=== PATIENT | female | born 1955 | race Caucasian/White ===

== ENCOUNTER 2016-11-09 09:01 | Emergency (ER) | payer OTHER ==
--- NOTE | 2016-11-09 09:13 | CPEKG ---
Heart Rate: 50 RR Interval: 1200 P-R Interval: 180 QRSD Interval: 84 QT Interval: 408 QTC Interval: 372 P [place]: 70 QRS [place]: -20 T Wave [place]: 41 EKG Severity - OTHERWISE NORMAL ECG - EKG Impression: SINUS RHYTHM EKG Impression: ATRIAL PREMATURE COMPLEX EKG Impression: BORDERLINE LEFT AXIS DEVIATION Electronically Signed By: Chidi Beebe 09-Nov-2016 13:55:08
--- NOTE | 2016-11-09 09:20 | EDPHY ---
H & P Stated Complaint: Chest pain, central, since 0700-sees Rishi Ritter. Source: Patient, Old records Exam Limitations: No limitations - Personal History Current Tetanus/Diphtheria Vaccine: No Current Tetanus Diphtheria and Acellular Pertussis (TDAP): No Tetanus Vaccine Date: pt allergic - Medical/Surgical History Hx Asthma: No Hx Chronic Respiratory Disease: No Hx Diabetes: No Hx Cardiac Disease: Yes Hx Renal Disease: No Hx Cirrhosis: No Hx Alcoholism: Yes Hx HIV/AIDS: No Hx Splenectomy or Spleen Trauma: No Other PMH: PMH: MIGRAINES, "Broken Heart Syndrome", cardiomyopathy, HTN. PSH: ORTHO,SKIN CA,THYROIDECTOMY,APPY - Social History Smoking Status: Former smoker Time Seen by Provider: 11/09/16 09:07 HPI/ROS: CHIEF COMPLAINT: Chest Pain HISTORY OF PRESENT ILLNESS: Patient complaints of chest pain that started at 6: 30 a.m. this morning. It started abruptly while going up a set of stairs. This is retrosternal. Constant duration. Currently 5/10 pain. Does not radiate. It is described as a burning sensation. Some shortness of breath with this. She also felt her heart racing this morning. She has no abdominal epigastric pain. She has no nausea, vomiting or diaphoresis. No recent trauma or surgery. She did recently travel back from [place]. She also has multiple stressors in her life right now. The symptoms are different than last year when she had chest pain that was diagnosis takotsubo syndrome. She has no other associated complaints or modifying factors. She did take her aspirin 325 mg this morning. She was recently scheduled to have a stress test and loop study, but these were canceled due to family emergencies. PRIOR CARDIAC WORKUP: Heart catheterization 2016. Pending stress test REVIEW OF SYSTEMS: Ten systems reviewed and are negative unless otherwise noted in the HPI EXAMINATION: General Appearance: Alert, no distress Head: normocephalic, atraumatic Eyes: Pupils equal and round, no conjunctival pallor or injection ENT, Mouth: Mucous membranes moist. Uvula midline. No erythema or edema. Neck: Normal inspection, supple, non-tender. Trachea midline. Respiratory: Lungs are clear to auscultation. No wheezing, rhonchi or crackles. Cardiovascular: Regular rate and rhythm. No murmur. Pulses intact distally. Gastrointestinal: Abdomen is soft and nontender Neurological: GCS 15. A&O, nonfocal, normal gait Skin: Warm and dry, no rash Extremities: Nontender, no pedal edema. No palpable cords. No pain with passive range of motion. No evidence of DVT. Psychiatric: Mood and affect normal DIFFERENTIAL DIAGNOSES: Including but not limited to in no particular order: Acute Chest Pain, ACS, Stable Angina, Pneumonia, PE, duodenitis, gastritis, esophagitis, GERD MDM: 9:20 a.m. Chest pain this started at 6:30 a.m. this morning. It is a retrosternal burning sensation. Vital signs stable and she is in no acute distress. Laboratory studies and chest x-ray are pending 10:[address] Gerardo has presented to the emergency department to evaluate the patient. He is aware of her presence that she contacted him this morning. He has evaluated the patient has requested an echocardiogram here in the emergency department. This has been ordered. Laboratory studies are negative thus far including a negative D-dimer. However, we are having difficulty obtaining a troponin. This is not yet been resulted. 10:40 a.m. Troponin is negative. Vital signs remained stable. She is obtaining her echocardiogram at bedside in ED at this time. 11:[address] Gerardo that the ejection fraction on the echocardiogram is normal. I discussed the findings with the patient. She informs that she is more comfortable with being observed today as she has continued to have pain and would like to know source of the pain. I informed her that she may not have answers to this, we will admit her to Dr. Gerardo for observation. Dr. Gerardo voiced that he is happy to do so. Plan for observation with repeat troponin and further studies per Dr. Gerardo. She is admitted in stable condition. EKG: Interpreted by Dr. Beebe SUPERVISION: Patient was evaluated in conjunction with the supervising physician. Please see their note for details. (Etienne Ramirez) Constitutional: Initial Vital Signs Temperature (C) 36.4 C 11/09/16 09:05 Heart Rate 62 11/09/16 09:05 Respiratory Rate 18 11/09/16 09:05 Blood Pressure 168/96 H 11/09/16 09:05 O2 Sat (%) 95 11/09/16 09:05 O2 Delivery Mode Room Air Allergies/Adverse Reactions: acyclovir [Acyclovir] Allergy (Verified 11/09/16 09:03) MIGRAINE latex [Latex] Allergy (Verified 11/09/16 09:03) ITCHING/MIGRAINE morphine Allergy (Verified 11/09/16 09:03) oxycodone [Oxycodone] Allergy (Verified 11/09/16 09:03) H.A./NAUSEA/ITCHING Sulfa (Sulfonamide Antibiotics) Allergy (Verified 11/09/16 09:03) ENVIRONMENTAL/SEASONAL Allergy (Uncoded 04/06/12 11:22) FRAGRANCES Allergy (Uncoded 04/06/12 11:22) MIGRAINES PHENOLOMINE Allergy (Uncoded 04/06/12 11:22) MIGRAINES SULFITES Allergy (Uncoded 04/06/12 11:22) MIGRAINE/VOMITING Home Medications: Medication Instructions Recorded Acetaminophen [Tylenol ES 500 mg 1,000 mg PO Q6 PRN 12/19/15 (*)] Cyclobenzaprine [Cyclobenzaprine 5 mg PO HS PRN 12/19/15 HCl] Eletriptan HBr [Relpax] 40 mg PO DAILY PRN 12/19/15 Estradiol [Estradiol 1 MG (*)] 1.5 mg PO HS 12/19/15 Levothyroxine [Synthroid 112 mcg 112 mcg PO Q2D@12/19/15 (*)] Loratadine [Claritin 10 mg] 10 mg PO DAILY PRN 12/19/15 Progesterone, Micronized 100 mg PO HS 12/19/15 [Progesterone] Aspirin [Aspirin 325 mg (*)] 325 mg PO DAILY #0 tab 12/21/15 Enalapril Maleate [Vasotec 5 MG 2.5 mg PO DAILY #30 tab 12/21/15 (*)] Carvedilol [Coreg (*)] 3.125 mg PO DAILY18 11/09/16 Herbals/Supplements -Info Only 1 ea PO DAILY 11/09/16 Ibuprofen [Motrin (*)] 600 mg PO DAILY PRN 11/09/16 LORazepam [Ativan (*)] 1 mg PO HS PRN 11/09/16 Levothyroxine [Synthroid 125 mcg 125 mcg PO Q2D@06 11/09/16 (*)] Ondansetron Odt [Zofran Odt 4 mg 4 mg PO DAILY PRN 11/09/16 (*)] Medical Decision Making - Diagnostics Imaging Results: Imaging Impressions Chest X-Ray 11/09/16 09:24 Impression: Clear lungs. Negative portable chest. ED Course/Re-evaluation: I discussed this case with Mar the physician assistant teaching professor and evaluated the patient reviewed the labs and EKG. Dr. Gerardo and Dr. Abdul from [facility] have both met with the patient and they feel it is safe for the patient to be discharged. She has no evidence of Takasubo's cardiomyopathy today. Patient would like to go home now. (Chidi Beebe) - Data Points Laboratory Results: Laboratory Results 11/09/16 09:17 11/09/16 09:17 11/09/16 11/09/16 11/09/16 09:17 09:17 09:17 WBC 4.04 10^3/uL 10^3/uL (3.80-9.50) RBC 4.85 10^6/uL 10^6/uL (4.18-5.33) Hgb 15.7 g/dL g/dL (12.6-16.3) Hct 46.3 % % (38.0-47.0) MCV 95.5 fL fL (81.5-99.8) MCH 32.4 pg pg (27.9-34.1) MCHC 33.9 g/dL g/dL (32.4-36.7) RDW 12.1 % % (11.5-15.2) Plt Count 216 10^3/uL 10^3/uL (150-400) MPV 10.9 fL fL (8.7-11.7) Neut % (Auto) 53.3 % % (39.3-74.2) Lymph % (Auto) 32.2 % % (15.0-45.0) [place] % (Auto) 9.9 % % (4.5-13.0) Eos % (Auto) 3.2 % % (0.6-7.6) Baso % (Auto) 1.2 % % (0.3-1.7) Nucleat RBC Rel Count 0.0 % % (0.0-0.2) Absolute Neuts (auto) 2.15 10^3/uL 10^3/uL (1.70-6.50) Absolute Lymphs (auto) 1.30 10^3/uL 10^3/uL (1.00-3.00) Absolute Monos (auto) 0.40 10^3/uL 10^3/uL (0.30-0.80) Absolute Eos (auto) 0.13 10^3/uL 10^3/uL (0.03-0.40) Absolute Basos (auto) 0.05 10^3/uL 10^3/uL (0.02-0.10) Absolute Nucleated RBC 0.00 10^3/uL 10^3/uL (0-0.01) Immature Gran % 0.2 % % (0.0-1.1) Immature Gran # 0.01 10^3/uL 10^3/uL (0.00-0.10) PT 13.3 SEC SEC (12.0-15.0) INR 1.02 (0.83-1.16) APTT 24.1 SEC SEC (23.0-38.0) D-Dimer < 0.27 ug/mLFEU ug/mLFEU (0.00-0.50) Sodium 143 mEq/L mEq/L (134-144) Potassium 4.2 mEq/L mEq/L (3.5-5.2) Chloride 105 mEq/L mEq/L (97-110) Carbon Dioxide 29 mEq/l mEq/l (22-31) Anion Gap 9 mEq/L mEq/L (8-16) BUN 17 mg/dL mg/dL (7-23) Creatinine 0.9 mg/dL mg/dL (0.6-1.0) Estimated GFR > 60 Glucose 79 mg/dL mg/dL (70-100) Calcium 9.8 mg/dL mg/dL (8.5-10.4) Troponin I < 0.012 ng/mL ng/mL (0-0.034) NT-Pro-B Natriuret Pep 205 pg/mL H pg/mL (0-125) Lipase 105.0 IU/L IU/L (23-300) Medications Given: Discontinued Medications Lorazepam (Ativan Injection) 1 mg IVP EDNOW ONE Stop: 11/09/16 09:36 Last Admin: 11/09/16 09:35 Dose: 1 mg Departure - Departure Disposition: [facility] Acute Clinical Impression: Acute chest pain Condition: Good
[2016-11-09] MEDS ORDERED: LORazepam 2 MG/ML INJ ONE (09:25)
[2016-11-09 09:27] LABS: % IMMATURE GRANULYOCYTES 0.2 % (0.0-1.1); ABSOLUTE IMMATURE GRANULOCYTES 0.01 10^3/uL (0.00-0.10); ADD DIFF? NO; ADD MORPH? NO; ADD SCAN? NO; ATYPICAL LYMPHOCYTE FLAG 10 (0-99); FRAGMENT RBC FLAG 0 (0-99); HEMATOCRIT 46.3 % (38.0-47.0); HEMOGLOBIN 15.7 g/dL (12.6-16.3); LEFT SHIFT FLG 0 (0-99); LIPEMIA HEMOLYSIS FLAG 90 (0-99); MEAN CELL HEMOGLOBIN 32.4 pg (27.9-34.1); MEAN CELL HEMOGLOBIN CONCENTR. 33.9 g/dL (32.4-36.7); MEAN CELL VOLUME 95.5 fL (81.5-99.8); MEAN PLATELET VOLUME 10.9 fL (8.7-11.7); PLATELET CLUMPS FLAG 0 (0-99); PLATELET COUNT 216 10^3/uL (150-400); RED BLOOD CELL COUNT 4.85 10^6/uL (4.18-5.33); RED CELL DISTRIBUTION WIDTH 12.1 % (11.5-15.2)
[2016-11-09] MEDS ORDERED: LORazepam 2 MG/ML INJ IVP ONE (09:35)
[2016-11-09 09:41] LABS: INR 1.02 (0.83-1.16); PROTIME(PATIENT) 13.3 SEC (12.0-15.0)
[2016-11-09 09:42] LABS: APTT 24.1 SEC (23.0-38.0)
[2016-11-09 09:47] LABS: ANION GAP 9 mEq/L (8-16); CALCIUM 9.8 mg/dL (8.5-10.4); CARBON DIOXIDE 29 mEq/l (22-31); CHLORIDE 105 mEq/L (97-110); CREATININE 0.9 mg/dL (0.6-1.0); GLOMERULAR FILTRATION RATE > 60; GLUCOSE 79 mg/dL (70-100); POTASSIUM 4.2 mEq/L (3.5-5.2); SODIUM 143 mEq/L (134-144)
[2016-11-09 10:27] LABS: TROPONIN I < 0.012 ng/mL (0-0.034)
--- NOTE | 2016-11-09 11:38 | ECHO ---
[id number] + + [address] : : [place] [address] : : [phone] + + Adult Echocardiographic Report + -----+ :Name: CISCO ALVAREZ MStudy Date: 11/09/2016 11:03 AM BP: 125/74 mmHg : : Hospital Admission Number: [id number] [facility] n: ER: :: 1955 Gender: Female : :Age: 61 yrs Race: WH,White : :Reason For Study: chest pain : :History: chest pain, h/o takotsubo : + -----+ MMode/2D Measurements \T\ Calculations IVSd: 0.81 cm LVIDd: 4.5 cm FS: 26.1 % Ao root diam: LVPWd: 0.81 cm LVIDs: 3.3 cm EDV(Teich): 2.9 cm 91.5 ml ESV(Teich): 44.5 ml EF(Teich): 51.4 % LVLd ap4: 7.9 cm SV(MOD-sp4): EDV(MOD-sp4): 47.0 ml 81.0 ml LVLs ap4: 6.2 cm ESV(MOD-sp4): 34.0 ml EF(MOD-sp4): 58.0 % Normal Measurement Values: + + :LVIDd (3.5-5.7cm) IVSd (0.6-1.1cm) LVPWd (0.6-1.1cm) Aortic Root (2.0-3.7cm)Left Atrium (1.5-4.0cm): :LV Vol(d) (76-115ml) LV Vol(s) (29-48ml) Ejec Fraction (50-65%)PV Umesh (0.6- 1.2m/s) TV Umesh (0.4-1.0m/s) : :MV E Umesh (0.8-1.0m/s)MV A Umesh (0.3-1.0m/s)LVOT Umesh (0.7-1.2m/s) Asc Ao Umesh ( 0.9-1.8m/s) : + + Doppler Measurements \T\ Calculations MV E max umesh: Ao V2 max: LV V1 max: PA V2 max: 47.9 cm/sec 91.7 cm/sec 69.1 cm/sec 66.9 cm/sec MV A max umesh: Ao max PG: LV V1 max PG: PA max P.3 cm/sec 3.4 mmHg 1.9 mmHg 1.8 mmHg MV E/A: 0.92 MV dec time: 0.30 sec TR max umesh: 201.0 cm/sec TR max P.2 mmHg RAP systole: 5.0 mmHg RVSP(TR): 21.2 mmHg Left Ventricle The left ventricle is normal in size and function. There is normal left ventricular wall thickness. Ejection Fraction = 55%. No regional wall motion abnormalities noted. Right Ventricle The right ventricle is normal in size and function. Atria The left atrial size is normal. Right atrial size is normal. Mitral Valve There is mild mitral valve prolapse. There is no mitral valve stenosis. There is trace mitral regurgitation. Tricuspid Valve The tricuspid valve is normal in structure and function. There is no tricuspid stenosis. There is trace to mild tricuspid regurgitation. Right ventricular systolic pressure is 21mmHg. Aortic Valve The aortic valve is trileaflet. There is no aortic stenosis. There is no aortic insufficiency. Pulmonic Valve The pulmonic valve is not well visualized. Great Vessels The aortic root is normal size. Pericardium/Pleural Small to moderate size pericardial effusion noted around the RV free wall and RA. No evidence of tamponade. Conclusion A two-dimensional transthoracic echocardiogram with M-mode and Doppler was performed. The left ventricle is normal in size and function. Ejection Fraction = 55%. There is mild mitral valve prolapse. There is trace mitral regurgitation. There is trace to mild tricuspid regurgitation. Right ventricular systolic pressure is 21mmHg. Small to moderate size pericardial effusion noted around the RV free wall and RA. No evidence of tamponade. Final Reading Physician: Ally Yi signed on 11/09/2016 11:36 AM Ordering Physician: Etienne Ramirez Performed By: Bre Youngblood
[2016-11-09 12:38] VITALS: TEMP 98.4
--- NOTE | 2016-11-09 13:10 | CPEKG ---
Heart Rate: 64 RR Interval: 938 P-R Interval: 172 QRSD Interval: 82 QT Interval: 400 QTC Interval: 413 P [place]: 63 QRS [place]: -17 T Wave [place]: 42 EKG Severity - BORDERLINE ECG - EKG Impression: SINUS RHYTHM EKG Impression: BORDERLINE LEFT AXIS DEVIATION EKG Impression: BORDERLINE T ABNORMALITIES, ANT-LAT LEADS Electronically Signed By: Chidi Beebe 09-Nov-2016 13:55:08
[2016-11-09 13:48] VITALS: BP 105/61; PULSE 68; RESP 16; O2SAT 93
== END 2016-11-09 13:47 | disposition home or self-care (01) ==
LOC: UNDOADMOB 11:42
DX: R07.9 Chest pain, unspecified (principal); I10 Essential (primary) hypertension; Z79.82 Long term (current) use of aspirin; Z85.828 Personal history of other malignant neoplasm of skin; Z87.891 Personal history of nicotine dependence; Z91.040 Latex allergy status
CPT/HCPCS: 96374; J2060

== ENCOUNTER 2017-02-23 11:48 | Emergency (ER) | payer OTHER ==
--- NOTE | 2017-02-23 12:03 | CPEKG ---
Heart Rate: 68 RR Interval: 882 P-R Interval: 172 QRSD Interval: 82 QT Interval: 408 QTC Interval: 434 P [place]: 74 QRS [place]: -10 T Wave [place]: 56 EKG Severity - BORDERLINE ECG - EKG Impression: SINUS RHYTHM EKG Impression: BORDERLINE T WAVE ABNORMALITIES Electronically Signed By: Juan Gomez 23-Feb-2017 12:34:56
[2017-02-23] MEDS ORDERED: ASPIRIN 81 MG CHEWABLE TAB PO ONE (12:05)
[2017-02-23] MEDS ORDERED: LORazepam 2 MG/ML INJ IVP ONE (12:13)
[2017-02-23 12:19] LABS: % IMMATURE GRANULYOCYTES 0.3 % (0.0-1.1); ABSOLUTE IMMATURE GRANULOCYTES 0.02 10^3/uL (0.00-0.10); ADD DIFF? NO; ADD MORPH? NO; ADD SCAN? NO; ATYPICAL LYMPHOCYTE FLAG 0 (0-99); FRAGMENT RBC FLAG 0 (0-99); HEMATOCRIT 45.3 % (38.0-47.0); HEMOGLOBIN 15.4 g/dL (12.6-16.3); LEFT SHIFT FLG 0 (0-99); LIPEMIA HEMOLYSIS FLAG 90 (0-99); MEAN CELL HEMOGLOBIN 32.4 pg (27.9-34.1); MEAN CELL VOLUME 95.2 fL (81.5-99.8); PLATELET CLUMPS FLAG 30 (0-99); PLATELET COUNT 237 10^3/uL (150-400); RED BLOOD CELL COUNT 4.76 10^6/uL (4.18-5.33); RED CELL DISTRIBUTION WIDTH 11.8 % (11.5-15.2)
--- NOTE | 2017-02-23 12:29 | EDPHY ---
H & P Smoking Status: Former smoker Time Seen by Provider: 02/23/17 12:24 HPI/ROS: HPI: Ms Blanton is a 61 yrs, female who presents with Chief Complaint: Chest pain Location: Mid sternal chest pain radiating to the back and both arms Quality: sharp, pressure Duration: started this morning while putting her makeup on. Signs and Symptoms: Positive shortness of breath, positive cardiac awareness, positive anxiety, negative lower leg swelling, negative nausea or vomiting, positive palpitations Timing: acute on chronic, sudden and constant Severity: Moderate Context: Patient history of takotsubo syndrome diagnosed via left heart catheterization in December 2015 with EF 15% and normal coronary arteries at that time which was managed medically. seen again in this ER 10/2016 with chest pain and negative cardiac enzymes and echocardiogram showing normal EF. palpitations have continued and patient recently had a Holter monitor day 04/[address] Vik Brock. PLan was to have a cardiac MRI but unable to complete outpatient due to claustrophobia and was scheduled for near future with anesthesia. Patient admits to some anxiety and took an Ativan 1 mg tablet this morning without relief. Modifying Factors: Ativan Comment: ROS: Eyes: No blurred vision Respiratory: + shortness of breath, no cough Cardiovascular: + chest pain Gastrointestinal: No nausea, no vomiting no diarrhea Genitourinary: No dysuria Extremities: No myalgias Neurologic: No weakness, no numbness Skin: No rashes Hematologic: No bruising, no bleeding MEDICAL/SURGICAL HISTORY: (Sarahi Pedraza) Physical Exam: CONSTITUTIONAL: Pleasant adult white female who appears younger than stated age accompanied by her awake and alert, moderate anxiety HEENT: Atraumatic and normocephalic, PERRL, EOMI. Tympanic membranes clear. . Oropharynx clear, no exudate and moist pink mucosa. Airway patent. No lymphadenopathy. No meningismus. Cardiovascular: Normal S1/S2, regular rate, regular rhythm, without murmur rub or gallop. PULMONARY/CHEST: Symmetrical and nontender. Clear to auscultation bilaterally Good air movement. No accessory muscle usage. ABDOMEN: Soft, nondistended, nontender, no rebound, no guarding, no peritoneal signs, no masses or organomegaly. No CVAT. EXTREMITIES: 2/2 pulses, no deformities, no clubbing, no cyanosis or edema. NEUROLOGICAL: no focal neuro deficits. GCS 15. SKIN: Warm and dry, no erythema. no rash. Good capillary refill. (Sarahi Pedraza) Constitutional: Initial Vital Signs Temperature (C) 36.3 C 02/23/17 11:49 Heart Rate 73 02/23/17 11:49 Respiratory Rate 18 02/23/17 11:49 Blood Pressure 161/94 H 02/23/17 11:49 O2 Sat (%) 98 02/23/17 11:49 O2 Delivery Mode Room Air Allergies/Adverse Reactions: acyclovir [Acyclovir] Allergy (Verified 02/23/17 11:53) MIGRAINE latex [Latex] Allergy (Verified 02/23/17 11:53) ITCHING/MIGRAINE morphine Allergy (Verified 02/23/17 11:53) oxycodone [Oxycodone] Allergy (Verified 02/23/17 11:53) H.A./NAUSEA/ITCHING Sulfa (Sulfonamide Antibiotics) Allergy (Verified 02/23/17 11:53) ENVIRONMENTAL/SEASONAL Allergy (Uncoded 04/06/12 11:22) FRAGRANCES Allergy (Uncoded 04/06/12 11:22) MIGRAINES PHENOLOMINE Allergy (Uncoded 04/06/12 11:22) MIGRAINES SULFITES Allergy (Uncoded 04/06/12 11:22) MIGRAINE/VOMITING Home Medications: Medication Instructions Recorded Acetaminophen [Tylenol ES 500 mg 1,000 mg PO Q6 PRN 12/19/15 (*)] Cyclobenzaprine [Cyclobenzaprine 5 mg PO HS PRN 12/19/15 HCl] Eletriptan HBr [Relpax] 40 mg PO DAILY PRN 12/19/15 Estradiol [Estradiol 1 MG (*)] 1.5 mg PO HS 12/19/15 Levothyroxine [Synthroid 112 mcg 112 mcg PO Q2D@12/19/15 (*)] Loratadine [Claritin 10 mg] 10 mg PO DAILY PRN 12/19/15 Progesterone, Micronized 100 mg PO HS 12/19/15 [Progesterone] Aspirin [Aspirin 325 mg (*)] 325 mg PO DAILY #0 tab 12/21/15 Enalapril Maleate [Vasotec 5 MG 2.5 mg PO DAILY #30 tab 12/21/15 (*)] Carvedilol [Coreg (*)] 3.125 mg PO DAILY18 11/09/16 Herbals/Supplements -Info Only 1 ea PO DAILY 11/09/16 Ibuprofen [Motrin (*)] 600 mg PO DAILY PRN 11/09/16 LORazepam [Ativan (*)] 1 mg PO HS PRN 11/09/16 Levothyroxine [Synthroid 125 mcg 125 mcg PO Q2D@06 11/09/16 (*)] Ondansetron Odt [Zofran Odt 4 mg 4 mg PO DAILY PRN 11/09/16 (*)] Medical Decision Making - Diagnostics EKG Interpretation: EKG: Complete interpretation has been separately recorded in the [facility] archive. Summary impression: Sinus rhythm, rate 68, nonspecific ST T wave changes noted unchanged from prior EKG. (Roly Mcmahon) 12 lead EKG: Indication: chest pain Rhythm: Normal sinus rhythm [place]: Normal Intervals: Normal QRS: Normal ST segments: Normal INTERPRETATION: Normal EKG The 12 lead EKG was interpreted by myself. Compared to 11/09/16; unchanged. (Sarahi Pedraza) Imaging Results: Imaging Impressions Chest X-Ray 02/23/17 12:05 Impression: Nothing acute identified. Is there any clinical evidence for air trapping or wheezing? ED Course/Re-evaluation: labs, CXR, EKG, oral medication 1215 given aspirin and IV Ativan Chest x-ray my read shows no pleural effusion, pneumothorax, opacity. EKG no ischemic changes troponin, BNP unremarkable ddimer high normal; PERC rule + 2 criteria (age, hormone use); low risk PE 1330 reassessed pain and now 3/10 only in back with some radiation down both arms. 1333 called [phone] for cardiology group of Dr. Brock wildlife biostation research ecologist provider, spoke with Dr. Shelly Crow who recommends echocardiogram Echo showed normal Ef and trace pericardial effusion [address] Crow on the normal echocardiogram. In comparison to the last echocardiogram effusion has improved, making pericarditis less likely. Patient's pain has resolved at discharge no signs of ACS/PE/arrhythmias/electrolyte imbalance/pericarditis/Takotsubo cardiomyopathy Plan is for patient to keep her follow-up appointment with Dr. Brock's PA on March 05 (Sarahi Pedraza) Differential Diagnosis: Chest pain including but not limited to myocardial ischemia, pulmonary embolus, chest wall pain, pericarditis, pleural inflammation and pulmonary infectious causes. (Sarahi Pedraza) Other Provider: INDEPENDENT PHYSICIAN EVALUATION I evaluated and participated in the management of the patient. I also evaluated the patient independently. My co-signature indicates that I have reviewed this chart and I agree with the findings and plan of care as documented. My personal H&P findings include: The patient has a history of takotsubo cardiomyopathy. She has been bothered with chronic dyspnea since that diagnosis. The patient presented to the ED today for evaluation of bilateral arm pressure and discomfort across her back. The patient reportedly has been dealing with intermittent palpitations. She reportedly had not taken her palpitations last night. The patient is currently wearing a Holter monitor. The patient is currently under the care of a pharmacy services director at the [facility] and is scheduled to get a cardiac MRI. PHYSICAL EXAM General Appearance: Alert, no distress Eyes: Pupils equal and round no pallor or injection ENT, Mouth: Mucous membranes moist Respiratory: There are no retractions, lungs are clear to auscultation Cardiovascular: Regular rate and rhythm Gastrointestinal: Abdomen is soft and nontender, no masses, bowel sounds normal Neurological: A&O, normal motor function, normal sensory exam, normal cranial nerves Skin: Warm and dry, no rashes Musculoskeletal: Neck is supple nontender Extremities: symmetrical, full range of motion MEDICAL DECISION MAKING The patient presents to emergency department with transient arm discomfort. The patient's EKG demonstrates no evidence of ischemia. Troponin is negative x2. The patient has a cardiac echocardiogram demonstrates no cardiomyopathy. The patient has trivial effusion. The patient will be discharged home as she has no evidence of ischemia or arrhythmia. The patient was noted to have a indeterminately elevated D-dimer however has no complaints of pleuritic chest pain, no complaints of shortness of breath and is primarily complaining of resolved arm discomfort. I do not feel that further workup with CT pulmonary angiogram is indicated. (Roly Mcmahon) - Data Points Laboratory Results: Laboratory Results 02/23/17 12:00 02/23/17 12:00 02/23/17 02/23/17 02/23/17 15:30 12:00 12:00 WBC RBC Hgb Hct MCV MCH MCHC RDW Plt Count MPV Neut % (Auto) Lymph % (Auto) [place] % (Auto) Eos % (Auto) Baso % (Auto) Nucleat RBC Rel Count Absolute Neuts (auto) Absolute Lymphs (auto) Absolute Monos (auto) Absolute Eos (auto) Absolute Basos (auto) Absolute Nucleated RBC Immature Gran % Immature Gran # D-Dimer 0.52 ug/mLFEU H ug/mLFEU (0.00-0.50) Sodium 141 mEq/L mEq/L (134-144) Potassium 4.3 mEq/L mEq/L (3.5-5.2) Chloride 104 mEq/L mEq/L (97-110) Carbon Dioxide 25 mEq/l mEq/l (22-31) Anion Gap 12 mEq/L mEq/L (8-16) BUN 16 mg/dL mg/dL (7-23) Creatinine 0.9 mg/dL mg/dL (0.6-1.0) Estimated GFR > 60 Glucose 85 mg/dL mg/dL (70-100) Calcium 9.3 mg/dL mg/dL (8.5-10.4) Magnesium 2.0 mg/dL mg/dL (1.6-2.3) Troponin I < 0.012 ng/mL ng/mL < 0.012 ng/mL ng/mL (0-0.034) (0-0.034) NT-Pro-B Natriuret Pep 186 pg/mL H pg/mL (0-125) TSH 0.125 uIU/mL L uIU/mL (0.465-4.680) Free T4 1.49 ng/dL ng/dL (0.59-2.19) 02/23/17 12:00 WBC 5.79 10^3/uL 10^3/uL (3.80-9.50) RBC 4.76 10^6/uL 10^6/uL (4.18-5.33) Hgb 15.4 g/dL g/dL (12.6-16.3) Hct 45.3 % % (38.0-47.0) MCV 95.2 fL fL (81.5-99.8) MCH 32.4 pg pg (27.9-34.1) MCHC 34.0 g/dL g/dL (32.4-36.7) RDW 11.8 % % (11.5-15.2) Plt Count 237 10^3/uL 10^3/uL (150-400) MPV 11.0 fL fL (8.7-11.7) Neut % (Auto) 63.9 % % (39.3-74.2) Lymph % (Auto) 26.4 % % (15.0-45.0) [place] % (Auto) 6.7 % % (4.5-13.0) Eos % (Auto) 1.7 % % (0.6-7.6) Baso % (Auto) 1.0 % % (0.3-1.7) Nucleat RBC Rel Count 0.0 % % (0.0-0.2) Absolute Neuts (auto) 3.69 10^3/uL 10^3/uL (1.70-6.50) Absolute Lymphs (auto) 1.53 10^3/uL 10^3/uL (1.00-3.00) Absolute Monos (auto) 0.39 10^3/uL 10^3/uL (0.30-0.80) Absolute Eos (auto) 0.10 10^3/uL 10^3/uL (0.03-0.40) Absolute Basos (auto) 0.06 10^3/uL 10^3/uL (0.02-0.10) Absolute Nucleated RBC 0.00 10^3/uL 10^3/uL (0-0.01) Immature Gran % 0.3 % % (0.0-1.1) Immature Gran # 0.02 10^3/uL 10^3/uL (0.00-0.10) D-Dimer Sodium Potassium Chloride Carbon Dioxide Anion Gap BUN Creatinine Estimated GFR Glucose Calcium Magnesium Troponin I NT-Pro-B Natriuret Pep TSH Free T4 Medications Given: Discontinued Medications Aspirin (Aspirin) 324 mg PO EDNOW ONE Stop: 02/23/17 12:06 Last Admin: 02/23/17 12:41 Dose: 324 mg Lorazepam (Ativan Injection) 1 mg IVP EDNOW ONE Stop: 02/23/17 12:14 Last Admin: 02/23/17 12:41 Dose: 1 mg Departure - Departure Disposition: Home, Routine, Self-Care Clinical Impression: Atypical chest pain Condition: Good Instructions: Palpitations (ED) Additional Instructions: 1. Please return to the emergency department for severe chest pain, difficulty breathing or other concerns. 2. Please follow up with your pharmacy services director as scheduled. Referrals: Cristino Gerardo MD [Primary Care Provider] - 03/05/17
[2017-02-23 12:49] LABS: ANION GAP 12 mEq/L (8-16); CALCIUM 9.3 mg/dL (8.5-10.4); CARBON DIOXIDE 25 mEq/l (22-31); CHLORIDE 104 mEq/L (97-110); CREATININE 0.9 mg/dL (0.6-1.0); GLOMERULAR FILTRATION RATE > 60; GLUCOSE 85 mg/dL (70-100); POTASSIUM 4.3 mEq/L (3.5-5.2); SODIUM 141 mEq/L (134-144)
[2017-02-23 13:00] LABS: TROPONIN I < 0.012 ng/mL (0-0.034)
[2017-02-23 16:18] VITALS: BP 98/68
[2017-02-23 16:55] VITALS: PULSE 84; RESP 14; TEMP 98.1; O2SAT 98
--- NOTE | 2017-02-23 17:12 | ECHO ---
[id number] + + [address] : : [place] [address] : : [phone] + + Adult Echocardiographic Report + -----+ :Name: CISCO ALVAREZ MStudy Date: 02/23/2017 03:17 PM BP: 109/69 mmHg : : Hospital Admission Number: [id number] Mulugeta n: ER: :: 1955 Gender: Female Height: 63 in : :Age: 61 yrs Race: WH,White Weight: 123 lb : :Reason For Study: chest pain eval EF : : BSA: 1.6 meters 2 : :History: h/o takotsubo cardiomyopathy : + -----+ MMode/2D Measurements \T\ Calculations IVSd: 0.77 cm RVDd: 2.4 cm FS: 31.0 % Ao root diam: LVPWd: 0.81 cm LVIDd: 4.1 cm EDV(Teich): 2.6 cm LVIDs: 2.8 cm 75.5 ml ESV(Teich): 30.9 ml EF(Teich): 59.1 % LVLd ap4: 8.4 cm SV(MOD-sp4): EDV(MOD-sp4): 53.0 ml 77.0 ml LVLs ap4: 6.5 cm ESV(MOD-sp4): 24.0 ml EF(MOD-sp4): 68.8 % Normal Measurement Values: + + :LVIDd (3.5-5.7cm) IVSd (0.6-1.1cm) LVPWd (0.6-1.1cm) Aortic Root (2.0-3.7cm)Left Atrium (1.5-4.0cm): :LV Vol(d) (76-115ml) LV Vol(s) (29-48ml) Ejec Fraction (50-65%)PV Umesh (0.6- 1.2m/s) TV Umesh (0.4-1.0m/s) : :MV E Umesh (0.8-1.0m/s)MV A Umesh (0.3-1.0m/s)LVOT Umesh (0.7-1.2m/s) Asc Ao Umesh ( 0.9-1.8m/s) : + + Doppler Measurements \T\ Calculations MV E max umesh: Ao V2 max: LV V1 max: PA V2 max: 45.9 cm/sec 93.7 cm/sec 65.6 cm/sec 65.9 cm/sec MV A max umesh: Ao max PG: LV V1 max PG: PA max P.3 cm/sec 3.5 mmHg 1.7 mmHg 1.7 mmHg MV E/A: 0.91 MV dec time: 0.20 sec TR max umesh: 219.0 cm/sec TR max P.2 mmHg RAP systole: 5.0 mmHg RVSP(TR): 24.2 mmHg Left Ventricle The left ventricle is normal in size and function. There is normal left ventricular wall thickness. Ejection Fraction = 60-65%. No regional wall motion abnormalities noted. Right Ventricle The right ventricle is normal in size and function. Atria The left atrial size is normal. Right atrial size is normal. Mitral Valve There is borderline mitral valve prolapse. There is no mitral valve stenosis. There is mild mitral regurgitation. Tricuspid Valve The tricuspid valve is normal in structure and function. There is no tricuspid stenosis. There is mild tricuspid regurgitation. Right ventricular systolic pressure is 24mmHg. Aortic Valve The aortic valve is trileaflet. There is no aortic stenosis. There is no aortic insufficiency. Pulmonic Valve The pulmonic valve is normal in structure and function. There is no pulmonic valvular regurgitation. Great Vessels The aortic root is normal size. Ascending aorta normal in size. Pericardium/Pleural Small pericardial effusion throughout except in apical four chamber the effusion appears more small to moderate in size. Conclusion A two-dimensional transthoracic echocardiogram with M-mode and Doppler was performed. The left ventricle is normal in size and function. Ejection Fraction = 60-65%. There is borderline mitral valve prolapse. There is mild mitral regurgitation. There is mild tricuspid regurgitation. Right ventricular systolic pressure is 24mmHg. Since previous echocardiogram 11/09/2016 there has been no significant changes. Small pericardial effusion throughout except in apical four chamber the effusion appears more small to moderate in size. Final Reading Physician: Ally Erickson signed on 02/23/2017 05:10 PM Ordering Physician: Sarahi Pedraza Performed By: Bre Youngblood
== END 2017-02-23 16:54 | disposition home or self-care (01) ==
DX: R07.89 Other chest pain (principal); Z87.891 Personal history of nicotine dependence; Z91.040 Latex allergy status; Z79.82 Long term (current) use of aspirin
CPT/HCPCS: 96374; J2060

== ENCOUNTER → 2017-06-11 | Outpatient (CLI) | payer OTHER | LOC: BMCIMAGING 12:40 | PROVIDERS: ATTEND Nurse Practitioner Women's Health | DX: D25.0 Submucous leiomyoma of uterus (principal); D25.2 Subserosal leiomyoma of uterus; Z78.0 Asymptomatic menopausal state ==

== ENCOUNTER → 2017-08-01 | Outpatient (CLI) | payer OTHER | LOC: FIMAGING 14:40 | PROVIDERS: ATTEND Nurse Practitioner Women's Health | DX: N60.01 Solitary cyst of right breast (principal) ==

== ENCOUNTER 2017-10-06 08:10 | Emergency (ER) | payer OTHER ==
[2017-10-06 08:17] VITALS: TEMP 98.6
--- NOTE | 2017-10-06 08:36 | CPEKG ---
Heart Rate: 127 RR Interval: 472 QRSD Interval: 80 QT Interval: 300 QTC Interval: 437 QRS Republic: -12 T Wave Republic: 255 EKG Severity - ABNORMAL ECG - EKG Impression: ATRIAL FLUTTER LIKELY INVOLVING CAVAL TRICUSPID ISTHMUS (TYPICAL ATRIAL EKG Impression: FLUTTER), A-RATE 263 EKG Impression: NONSPECIFIC ST_T WAVE ABNORMAILITES LIKELY RELATED TO FLUTTER WAVES Electronically Signed By: Navneet Gonzales 09-Oct-2017 09:41:12
[2017-10-06] MEDS ORDERED: CARVEDILOL 3.125 MG TAB PO ONE (08:38)
--- NOTE | 2017-10-06 08:42 | EDPHY ---
H & P Stated Complaint: pt concerned for htn, anxious Time Seen by Provider: 10/06/17 08:24 HPI/ROS: Chief Complaint: Anxious, upper back discomfort HPI: 62-year-old woman with a history of Takotsubo cardiomyopathy last summer is presenting complaining of lightheadedness, anxiety and upper back pain. Patient states that she woke up early this morning at about 1:00 a.m. To go to the bathroom and noted she felt a lightheaded and felt that her head swimming when she turned her head to the side. She did not fall down. The room was not spinning. She did not faint. At that time she noticed that she had for gotten to take her nighttime carvedilol dose. Symptoms persisted overnight. This morning she got up again her head was swimming. At that time she began getting increasingly anxious. She checked her blood pressure and noted it was 129/101. She Re checked again with the same reading. She became increasingly concerned given her medical history. Patient states that her cardiomyopathy has since resolved. She actually had a cardiac MRI last week was normal. Has had some mild discomfort in her upper back adult 07/24. This is not similar to when she had her cardiac event last summer. No recent illness. No fevers or chills. No nausea or vomiting. Patient states she is feeling very anxious and concerned at this time. ROS: 10 point Review of Systems is negative except as noted in the HPI. PMH: Dr. Pickens cardiomyopathy, hypothyroidism secondary to thyroid cancer, hypertension Social History: No smoking, no alcohol, no recreational drug use Family History: non-contributory Physical Exam: Gen: Awake, Alert, very anxious, no distress HEENT: Nose: no rhinorrhea Eyes: PERRLA, EOMI Mouth: Moist mucosa Neck: Supple, no JVD Chest: nontender, lungs clear to auscultation Heart: S1, S2 normal, no murmur Abd: Soft, non-tender, no guarding Back: no CVA tenderness, no midline tenderness Ext: no edema, non-tender Skin: no rash Neuro: CN II-XII intact, Sensation grossly intact, Strength 5/5 in bilateral upper and lower extremities - Personal History Current Tetanus/Diphtheria Vaccine: No Current Tetanus Diphtheria and Acellular Pertussis (TDAP): No Tetanus Vaccine Date: pt allergic - Medical/Surgical History Hx Asthma: No Hx Chronic Respiratory Disease: No Hx Diabetes: No Hx Cardiac Disease: Yes Hx Renal Disease: No Hx Cirrhosis: No Hx Alcoholism: Yes Hx HIV/AIDS: No Hx Splenectomy or Spleen Trauma: No Other PMH: PMH: MIGRAINES, "Broken Heart Syndrome", cardiomyopathy, HTN, card arrythmias. PSH: ORTHO,SKIN CA,THYROIDECTOMY,APPY - Social History Smoking Status: Former smoker Constitutional: Initial Vital Signs Temperature (C) 37.0 C 10/06/17 08:13 Heart Rate 133 H 10/06/17 08:13 Respiratory Rate 24 H 10/06/17 08:13 Blood Pressure 123/88 H 10/06/17 08:13 O2 Sat (%) 100 10/06/17 08:13 O2 Delivery Mode Room Air O2 (L/minute) 2 Allergies/Adverse Reactions: acyclovir [Acyclovir] Allergy (Verified 02/23/17 11:53) MIGRAINE latex [Latex] Allergy (Verified 02/23/17 11:53) ITCHING/MIGRAINE morphine Allergy (Verified 02/23/17 11:53) oxycodone [Oxycodone] Allergy (Verified 02/23/17 11:53) H.A./NAUSEA/ITCHING Sulfa (Sulfonamide Antibiotics) Allergy (Verified 02/23/17 11:53) ENVIRONMENTAL/SEASONAL Allergy (Uncoded 04/06/12 11:22) FRAGRANCES Allergy (Uncoded 04/06/12 11:22) MIGRAINES PHENOLOMINE Allergy (Uncoded 04/06/12 11:22) MIGRAINES SULFITES Allergy (Uncoded 04/06/12 11:22) MIGRAINE/VOMITING Home Medications: Medication Instructions Recorded Acetaminophen [Tylenol ES 500 mg 1,000 mg PO Q6 PRN 12/19/15 (*)] Cyclobenzaprine [Cyclobenzaprine 5 mg PO HS PRN 12/19/15 HCl] Eletriptan HBr [Relpax] 40 mg PO DAILY PRN 12/19/15 Estradiol [Estradiol 1 MG (*)] 1.5 mg PO HS 12/19/15 Levothyroxine [Synthroid 112 mcg 112 mcg PO Q2D@12/19/15 (*)] Loratadine [Claritin 10 mg] 10 mg PO DAILY PRN 12/19/15 Progesterone, Micronized 100 mg PO HS 12/19/15 [Progesterone] Aspirin [Aspirin 325 mg (*)] 325 mg PO DAILY #0 tab 12/21/15 Enalapril Maleate [Vasotec 5 MG 2.5 mg PO DAILY #30 tab 12/21/15 (*)] Carvedilol [Coreg (*)] 3.125 mg PO DAILY18 11/09/16 Herbals/Supplements -Info Only 1 ea PO DAILY 11/09/16 Ibuprofen [Motrin (*)] 600 mg PO DAILY PRN 11/09/16 LORazepam [Ativan (*)] 1 mg PO HS PRN 11/09/16 Levothyroxine [Synthroid 125 mcg 125 mcg PO Q2D@06 11/09/16 (*)] Ondansetron Odt [Zofran Odt 4 mg 4 mg PO DAILY PRN 11/09/16 (*)] Medical Decision Making - Diagnostics Imaging Results: Imaging Impressions Chest X-Ray 10/06/17 08:39 Impression: Clear lungs. No acute process. Imaging: I viewed and interpreted images myself ED Course/Re-evaluation: 0950 Patient's heart rate has come down to 76 with a sinus rhythm after carvedilol. Laboratory evaluations including troponin are normal. Patient is still complaining of feeling very anxious. Will give her some Ativan now. Patient is feeling much better. Has continually had a heart rate in the 70s now. No acute ischemia or abnormal changes on her ECG. Will discharge with follow up with self propelled hot mix roller operator, return for any concerns. - Data Points Laboratory Results: Laboratory Results 10/06/17 08:30 10/06/17 08:30 10/06/17 10/06/17 08:30 08:30 WBC 3.44 10^3/uL L 10^3/uL (3.80-9.50) RBC 4.87 10^6/uL 10^6/uL (4.18-5.33) Hgb 16.0 g/dL g/dL (12.6-16.3) Hct 46.8 % % (38.0-47.0) MCV 96.1 fL fL (81.5-99.8) MCH 32.9 pg pg (27.9-34.1) MCHC 34.2 g/dL g/dL (32.4-36.7) RDW 11.8 % % (11.5-15.2) Plt Count 216 10^3/uL 10^3/uL (150-400) MPV 10.6 fL fL (8.7-11.7) Neut % (Auto) 53.8 % % (39.3-74.2) Lymph % (Auto) 29.7 % % (15.0-45.0) Frio % (Auto) 12.2 % % (4.5-13.0) Eos % (Auto) 2.3 % % (0.6-7.6) Baso % (Auto) 1.7 % % (0.3-1.7) Nucleat RBC Rel Count 0.0 % % (0.0-0.2) Absolute Neuts (auto) 1.85 10^3/uL 10^3/uL (1.70-6.50) Absolute Lymphs (auto) 1.02 10^3/uL 10^3/uL (1.00-3.00) Absolute Monos (auto) 0.42 10^3/uL 10^3/uL (0.30-0.80) Absolute Eos (auto) 0.08 10^3/uL 10^3/uL (0.03-0.40) Absolute Basos (auto) 0.06 10^3/uL 10^3/uL (0.02-0.10) Absolute Nucleated RBC 0.00 10^3/uL 10^3/uL (0-0.01) Immature Gran % 0.3 % % (0.0-1.1) Immature Gran # 0.01 10^3/uL 10^3/uL (0.00-0.10) Sodium 145 mEq/L mEq/L (135-145) Potassium 4.3 mEq/L mEq/L (3.5-5.2) Chloride 106 mEq/L mEq/L (97-110) Carbon Dioxide 27 mEq/l mEq/l (22-31) Anion Gap 12 mEq/L mEq/L (8-16) BUN 17 mg/dL mg/dL (7-23) Creatinine 0.8 mg/dL mg/dL (0.6-1.0) Estimated GFR > 60 Glucose 79 mg/dL mg/dL (70-100) Calcium 9.2 mg/dL mg/dL (8.5-10.4) Troponin I < 0.012 ng/mL ng/mL (0.000-0.034) Medications Given: Discontinued Medications Carvedilol (Coreg) 3.125 mg PO EDNOW ONE Stop: 10/06/17 08:39 Last Admin: 10/06/17 09:01 Dose: 3.125 mg Sodium Chloride (Ns) 1,000 mls @ 0 mls/hr IV ONCE ONE PRN Reason: Wide Open Stop: 10/06/17 08:47 Last Admin: 10/06/17 09:02 Dose: 1,000 mls Lorazepam (Ativan Injection) 1 mg IVP EDNOW ONE Stop: 10/06/17 09:52 Last Admin: 10/06/17 10:03 Dose: 1 mg Departure - Departure Disposition: Home, Routine, Self-Care Clinical Impression: Palpitations, Tachycardia Condition: Good Instructions: Heart Palpitations (ED), Tachycardia (ED) Additional Instructions: Follow up with her self propelled hot mix roller operator in 1-2 days for further evaluation. Return to the emergency department for lightheadedness, fainting, chest pain, shortness of breath, rapid heart rate, or any other concerns. Referrals: NONE *PRIMARY CARE P,. [Primary Care Provider] - As per Instructions
[2017-10-06 08:43] LABS: PLATELET COUNT 216 10^3/uL (150-400)
[2017-10-06] MEDS ORDERED: NS 1,000 ML IV ONE (08:46)
[2017-10-06 09:50] VITALS: RESP 16
[2017-10-06] MEDS ORDERED: LORazepam 2 MG/ML INJ IVP ONE (09:51)
[2017-10-06 11:03] VITALS: BP 113/76; PULSE 72; O2SAT 96
== END 2017-10-06 11:21 | disposition home or self-care (01) ==
DX: R00.0 Tachycardia, unspecified (principal); R00.2 Palpitations; I10 Essential (primary) hypertension; Z79.82 Long term (current) use of aspirin; Z85.828 Personal history of other malignant neoplasm of skin; Z85.850 Personal history of malignant neoplasm of thyroid; Z87.891 Personal history of nicotine dependence; Z91.040 Latex allergy status
CPT/HCPCS: 96374; J2060

== ENCOUNTER → 2018-05-22 | Outpatient (CLI) | payer OTHER | LOC: FIMAGING 08:50 | DX: N60.01 Solitary cyst of right breast (principal) ==